=== PATIENT | female | born 1995 | race Caucasian/White ===

== ENCOUNTER 2022-02-03 14:29 | Emergency (ER) | payer OTHER ==
[2022-02-03] MEDS ORDERED: NAPROXEN500 MG PO (17:42)
[2022-02-03] MEDS ORDERED: BACLOFEN 10MG T10 MG PO (17:42)
== END 2022-02-03 17:48 | disposition home or self-care (01) ==
LOC: FER 14:29
DX: M54.2 Cervicalgia (principal); F17.290 Nicotine dependence, other tobacco product, uncomplicated; V49.40XA Driver injured in collision with unspecified motor vehicles in traffic accident, initial encounter; Z28.310 Unvaccinated for COVID-19
CPT/HCPCS: 70450; 72125; 96372; J1100; J1885